=== PATIENT | male | born 1925 | race Caucasian/White ===

== ENCOUNTER 2016-10-26 21:34 | Emergency (ER) | payer MEDICARE ==
[~2016-10-26] VITALS: Ht 172.7 cm; Wt 63.6 kg
[2016-10-26 21:40] VITALS: BP 113/64; PULSE 62; RESP 18; O2SAT 95
--- NOTE | 2016-10-26 23:37 | ED.REPORT ---
HPI-General Illness Date of Service Oct 26, 2016 ED Provider: Ashish Menezes MD Patient is a 89 year old male with a history of atrial fibrillation on Xarelto, coronary artery disease, COPD, and congestive heart failure who is sent to the ED from [facility] for placement NG tube place for dysphagia per Dr. Torres's order. The patient is to have the NG tube placed so that he can feed temporarily, he is currently unable to pass a swallow screen. The patient does not have any other complaints. Nursing Notes Stated Complaint: INSERTION- NG TUBE Chief Complaint: General Complaint Nursing Notes Reviewed: Yes Allergies: Coded Allergies: No Known Allergies (Unverified , 10/26/16) General Time Seen by MD: 23:33 Chief Complaint Other (NG tube placement) Hx Obtained From: Patient Arrived By: Wheelchair Sudden in Onset?: No Onset Occurred: 1 day ago Severity: Current: No pain currently Severity: Maximum: No pain Recent Healthcare: No recent doctor visit, No recent hospitalization Similar Sx Previous: No Past Medical History Past Medical History Atrial fibrillation on Xarelto macrocytic anemia polymyositis Reports: COPD, Congestive heart failure, Coronary artery disease, Hyperlipidemia Past Surgical History Reports: CABG Smoking History Unknown if Ever Smoker Social History Lives at [facility] Other Social History: Good social support, Lives in [facility], Local resident Ambulatory Status Wheelchair Review of Systems no medical complaints other than dysphagia, here for NG tube placement Full Review of Systems Constitutional: Denies: Chills, Fever GI: Reports: Dysphagia, Denies: Abdominal pain Complete sys rev & neg: except as marked. Physical Exam Vital Signs Vital Signs Date Time Temp Pulse Resp B/P Pulse Ox O2 Delivery O2 Flow Rate FiO2 10/27/16 00:01 16 115/72 92 Room Air 10/26/16 21:40 36.4 62 18 113/64 95 Nasal Cannula 2 Initial VS: Reviewed, Vital signs normal Skin: Warm, Dry, No cyanosis Neurologic: Alert, Nonfocal Psychiatric: Mood/affect normal, Behavior normal, Normal thought content General/Constitutional: Awake, Alert, No acute distress sitting in a motorized wheelchair Head / Eyes: Atraumatic, Normocephalic, PERRL ENT: Airway patent NG tube in place, left nare Neck: Supple, Non-tender Respiratory / Chest: Breath sounds NL, Breath sounds = bilat, No respiratory distress, No rales, No rhonchi, No wheezing Cardiovascular: Heart rate NL, Regular rhythm Heart Sounds / Murmur: Positive: Systolic murmur present.. (III-IV/ holosystolic murmur) Abdomen: Soft, Non-tender Interpretation & Diagnostics X-Ray Chest Interpretation Chest Xray Interpretation: Impression: NG tube is in good position View: Portable Interpretation / Wet Read by: Wet read ED physician Re-Eval/Medical Decision Med Decision/Clinical Course 89-year-old male who was sent to the emergency room to place an NG tube. He failed a swallow screen and there was concern for potential aspiration. He will temporarily receive hydration and alimentation through the tube. An NG tube was placed without difficulty and position in the stomach was confirmed by x-ray and gastric bubbling. He is being returned to the longterm. Further follow-up and orders by Dr. Torres. Source of Hx: Old records Time of Eval: 23:58 Patient Status: Condition improved Re-Evaluation/Progress Note: NG tube placement was confirmed. Patient understands and agrees with the plan to be discharged home. Discharge instructions and follow-up discussed. All questions were addressed. Return to the ED warnings given. Counseled Regarding: Diagnosis, Need for follow-up, When/why to return to ED Discharge & Departure Primary Impression: Dysphagia Dysphagia type: unspecified Qualified Code: R13.10 - Dysphagia, unspecified Additional Impression: Encounter for nasogastric (NG) tube placement Disposition: Home Discharge Condition All VS Reviewed: Yes Condition: Stable Patient Instructions: Nasogastric Intubation (ED) Additional Instructions: NG tube was placed without difficulty and is in good position per the chest x- ray. Further orders per Dr. Torres. Referrals: John Krueger MD (PCP) Scribe Attestation Portions of this note were transcribed by Steph Cancino. I, Dr. Menezes personally performed the history, physical exam and medical decision-making; I reviewed and confirmed the accuracy of the information in the transcribed note. Signed by: Fernanda Curran, 10/27/2016 0008 copies to: John Krueger MD, Howard L MD Oct 26, 2016 23:37 Steph Cancino Oct 26, 2016 23:56
[2016-10-27 00:01] VITALS: BP 115/72; RESP 16; O2SAT 92
--- NOTE | 2016-10-27 06:49 | DRSVH ---
PROCEDURE: X-RAY CHEST ONE VIEW, PORTABLE ([id number]) INDICATIONS: NGT TECHNIQUE: One view of the chest was acquired. COMPARISON: None. FINDINGS: Surgical changes and devices: Sternal wires consistent previous bypass procedure are noted. Nasogastr ic tube is present with distal tip overlying the left hemiabdomen below the hemidiaphragm. Lungs and pleura: There is a diffuse appearance of increased pulmonary vascularity and chronic inters titial changes. Bilateral minimal effusions are present. Mediastinum: Mediastinal contours appear normal. Heart size is normal. Bones and chest wall: No suspicious bony lesions. Overlying soft tissues appear unremarkable. IMPRESSION: Increased pulmonary vascularity with minimal effusions suggestive of edema. Small, underl sheldon developing areas of airspace disease such as atelectasis and/or pneumonia cannot be definitively excluded. Dictated by: Zulma Soni M.D. on 10/27/2016 at 6:46 Approved by: Zulma Soni M.D. on 10/27/2016 at 6:47
== END 2016-10-26 23:50 | disposition home or self-care (01) ==
LOC: SED 21:34
DX: R13.10 Dysphagia, unspecified (principal); I25.10 Atherosclerotic heart disease of native coronary artery without angina pectoris; E78.5 Hyperlipidemia, unspecified; J44.9 Chronic obstructive pulmonary disease, unspecified; I48.91 Unspecified atrial fibrillation; I50.9 Heart failure, unspecified; Z95.1 Presence of aortocoronary bypass graft; Z79.01 Long term (current) use of anticoagulants